=== PATIENT | female | born 1950 | race Caucasian/White ===

== ENCOUNTER 2025-05-26 06:25 | Day surgery (SDC) | payer OTHER, SELFPAY ==
[2025-05-26 07:34] LABS: Glucose - Point of Care 186 mg/dl (70-99)
== END 2025-05-26 08:43 | disposition home or self-care (01) ==
LOC: GI 06:25
PROVIDERS: ATTENDING PHYSICIAN Internal Medicine
DX: Z12.11 Encounter for screening for malignant neoplasm of colon (principal); Z86.0101 Personal history of adenomatous and serrated colon polyps; K64.9 Unspecified hemorrhoids; K57.30 Diverticulosis of large intestine without perforation or abscess without bleeding; K63.89 Other specified diseases of intestine; D12.4 Benign neoplasm of descending colon
CPT/HCPCS: 45385; 45380; 82962; 88305